=== PATIENT | female | born 1980 | race Caucasian/White ===

== ENCOUNTER 2019-03-11 11:30 | Observation (INO) ==
[~2019-03-11 11:30] MED LIST: FERRLECIT 125 MG in NS 100 ML IV ONE
[2019-03-11] MEDS ORDERED: REGLAN IV ONE (11:50)
[2019-03-11] MEDS ORDERED: REGLAN IM ONE (12:05)
[2019-03-11 12:19] LABS: OCCULT BLOOD 1 NEGATIVE (NEGATIVE)
[2019-03-11 12:32] LABS: BILIRUBIN URINE NEGATIVE (NEGATIVE); BLOOD URINE 1+ (NEGATIVE); CLARITY SL. CLOUDY (CLEAR); COLOR YELLOW; GLUCOSE URINE NEGATIVE (NEGATIVE); KETONE URINE NEGATIVE (NEGATIVE); LEUKOCYTES URINE TRACE (NEGATIVE); NITRITE URINE NEGATIVE (NEGATIVE); PROTEIN URINE TRACE mg/dL (NEGATIVE); UROBILINOGEN URINE 1 mg/dL
[2019-03-11 12:34] LABS: URINE BACTERIA 2+ /HFP; URINE CAST NONE SEEN /LPF; URINE CRYSTAL NONE SEEN /HPF; URINE EPITHELIAL CELLS >10 /HPF (<10); URINE RBC <10 /HPF (<10); URINE YEAST NONE SEEN /HPF
[2019-03-11 12:35] LABS: URINE SOURCE CLEAN CATCH
[2019-03-11 12:40] LABS: AGAP 9; BUN 15 mg/dL (8-22); CALCIUM 8.9 mg/dL (8.8-10.2); CHLORIDE 105 mmol/L (98-107); COSMO 280; CREATININE 0.5 mg/dL (0.5-0.9); ESTIMATED GFR > 60; GLUCOSE 93 mg/dL (70-104); POTASSIUM 3.9 mmol/L (3.5-5.1); SODIUM 140 mmol/L (136-145); TCO2 26 mmol/L (25-35)
[2019-03-11 12:56] LABS: BASO# 0.15 X1000 (0.0-0.2); BASO% 1.9 % (0.0-0.8); EOS# 0.36 X1000 (0.0-0.7); EOS% 4.5 % (0.0-10.0); HEMATOCRIT 27.9 % (37.0-47.0); HEMOGLOBIN 7.7 g/dL (12.0-16.0); IMM GRAN# 0.01 X1000 (0.0-0.04); IMM GRAN% 0.1 % (0.0-0.5); LYMPH# 1.49 X1000 (1.2-3.4); LYMPH% 18.8 % (20.5-51.1); MCH 17.8 PG (27-31); MCHC 27.6 g/dL (33-37); MCV 64.6 FL (81-99); MONO# 0.59 X1000 (0.11-0.59); MONO% 7.4 % (1.7-9.3); MPV 10.1 FL (7.4-10.4); NEUT# 5.34 X1000 (1.4-6.5); NEUT% 67.3 % (42.2-75.2); PLT 536 X1000 (130-400); RBC 4.32 XMIL (4.2-5.4); WBC 7.94 X1000 (4.8-10.8)
[2019-03-11] MEDS ORDERED: ZANTAC 50 MG in NS 50 ML IV SCH (13:45)
[2019-03-11] MEDS ORDERED: PEPCID IV SCH (14:00)
[2019-03-11] MEDS ORDERED: TYLENOL PO PRN (14:07)
[2019-03-11] MEDS ORDERED: ZOFRAN IV PRN (14:07)
[2019-03-11] MEDS ORDERED: SODIUM CHLORIDE 0.9% INJ SCH (14:15)
[2019-03-11] MEDS ORDERED: PROTONIX IV SCH (14:15)
[2019-03-11 14:43] LABS: IRON SATURATION 3 %; TIBC 509 ug/dL; TOTAL IRON 16 ug/dL (49-151); UNBOUND IRON 493 ug/dL (112-346)
[2019-03-11] MEDS ORDERED: ULTRAM PO PRN (16:19)
[2019-03-11] MEDS ORDERED: TYLENOL PO ONE (16:47)
[2019-03-11] MEDS ORDERED: BENADRYL PO ONE (16:47)
--- NOTE | 2019-03-11 19:03 | HISTORY AND PHYSICAL ---
CHIEF COMPLAINT: Was weakness, dizziness. HISTORY OF PRESENT ILLNESS: This is a 38-year-old female with a history of peptic ulcer disease and symptomatic anemia. I think she has ever really completely had follow-up as such, but in any case, the patient was admitted. She came in with symptomatic anemia. Hemoglobin and hematocrit was around 7 and 27, microcytic indices. Again, she was here in 2015 for an upper GI bleed. She had a large peptic ulcer and her initial H H was 4.9 and 19. She received 3 units of blood at that time and her H H improved Dr. Mclain found a large pyloric channel ulcer about 3 to 4 cm with contact oozing at the edges as well as duodenitis. At that time, she did take Goody powders and BC Powder. She says she does not currently take those. She uses Tylenol, but very sparingly. Her stool for H pylori was negative. I do not know if we did any other testing. I do not see any pathology reports. In any case, the patient is doing well. She came in. She does report constipation and that is why she does not take iron. She does also reports heavy cycles, she says every 2 weeks for about 5 days. She goes through a box and a half of tampons during that time. No melena this time. No hematochezia, no hematemesis, but she says last time she did not have gross bleeding with her ulcer. Reportedly, she has lost 50 to 60 pounds in the last year and she does this. Apparently, she does have stomach pains and hurting and have discomfort generally speaking. In any case, the patient is having some issues consistently with a GI bleed. She says since that time she has had her blood counts checked, although she does not really see a regular physician and they have been normal. She has been living in the [place] area. Her H H at this time was 7 and 27. Previously she has been around 9 and 30, MCV is low at 64, platelets up at 536,000. The patient placed in observation for symptomatic anemia. PAST MEDICAL HISTORY: Peptic ulcer disease, symptomatic anemia presumably related to iron deficiency. PAST SURGICAL HISTORY: Denies. FAMILY HISTORY: Mother had pancreatic cancer. SOCIAL HISTORY: Half a pack a day smoker. No regular alcohol use. No recreational drugs. ALLERGIES: To penicillin. MEDICATIONS: Omeprazole. REVIEW OF SYSTEMS: Again, the 50-60 pounds weight loss. She has had some dyspepsia. Otherwise negative times a 10 point review of systems. PHYSICAL EXAM: VITAL SIGNS: Blood pressure 113/48, heart rate is 61, respiratory rate 18, temperature 97.2 degrees, 100% on room air. GENERALLY: Well-developed female in no acute distress. HEAD EXAM: Was normocephalic, atraumatic. EYE EXAM: Pupils equal, round, reactive to light. Extraocular movements were intact. Her conjunctiva are pale. NECK EXAM: Supple. CARDIOVASCULAR EXAM: Regular rate and rhythm. No murmurs, gallops, or rubs. PULMONARY EXAM: Bilateral breath sounds. Clear to auscultation. GI: Was soft, nontender, nondistended. Bowel sounds are positive. NEURO EXAM: Was nonfocal. MUSCULOSKELETAL EXAM: Was 4 to 5 in all 4 extremities. SKIN: Was clean, dry, intact. Again, she had pale conjunctiva. LABORATORY DATA: Again, her hemoglobin and hematocrit was around 7 and 27. Rest of her labs were unremarkable. Iron labs which were drawn after the fact showed low iron, high TIBC, but high iron binding, iron saturation of 3%, which is extremely low. Hemoccult was negative. ASSESSMENT: This is a 38-year-old female with history of symptomatic anemia, previous history of peptic ulcer disease. 1. Symptomatic anemia. We will continue treatments. I am going to go and give her 1 unit of blood. Check her iron levels and we will see how she does. It is suspicious she has recurrent occult bleeding, but she possibly could have menorrhagia/metrorrhagia so we will get a pelvic ultrasound and follow. DISPOSITION: Pending her clinical status but anticipate discharge hopefully soon with close GI follow-up. cc: Jean Claude Alvarez MD
[2019-03-11] MEDS ORDERED: NS 500 ML ONE (19:04)
[2019-03-11] MEDS ORDERED: PRILOSEC PO SCH (21:00)
[2019-03-12] MEDS ORDERED: PRILOSEC PO SCH (07:00)
[2019-03-12 07:18] LABS: BASO# 0.15 X1000 (0.0-0.2); BASO% 1.8 % (0.0-0.8); EOS# 0.41 X1000 (0.0-0.7); EOS% 4.9 % (0.0-10.0); HEMATOCRIT 30.3 % (37.0-47.0); HEMOGLOBIN 8.6 g/dL (12.0-16.0); IMM GRAN# 0.01 X1000 (0.0-0.04); IMM GRAN% 0.1 % (0.0-0.5); LYMPH# 2.28 X1000 (1.2-3.4); LYMPH% 27.2 % (20.5-51.1); MCH 19.2 PG (27-31); MCHC 28.4 g/dL (33-37); MCV 67.8 FL (81-99); MONO# 0.78 X1000 (0.11-0.59); MONO% 9.3 % (1.7-9.3); MPV 10.3 FL (7.4-10.4); NEUT# 4.76 X1000 (1.4-6.5); NEUT% 56.7 % (42.2-75.2); PLT 411 X1000 (130-400); RBC 4.47 XMIL (4.2-5.4); RDW 21.4 % (11.5-14.5); WBC 8.39 X1000 (4.8-10.8)
[2019-03-12 07:29] VITALS: BP 112/56
[2019-03-12 07:47] LABS: AGAP 8; BUN 15 mg/dL (8-22); CALCIUM 8.4 mg/dL (8.8-10.2); CHLORIDE 107 mmol/L (98-107); COSMO 276; CREATININE 0.4 mg/dL (0.5-0.9); ESTIMATED GFR > 60; GLUCOSE 86 mg/dL (70-104); POTASSIUM 3.5 mmol/L (3.5-5.1); SODIUM 138 mmol/L (136-145); TCO2 23 mmol/L (25-35)
[2019-03-12] MEDS ORDERED: FERRLECIT 125 MG in NS 100 ML IV ONE (08:00)
[2019-03-12 09:35] LABS: EOS 4 % (1-10); LYMPHS 29 % (21-51); MONO 6 % (1-9); SEGS 61 % (42-75)
--- NOTE | 2019-03-12 10:03 | Diag Imaging Result Doc PS360 ---
US PELVIC NON-OB COMPLETE - 03/12/2019 INDICATION: menorrhagia/anemia TECHNIQUE: Transabdominal COMPARISON: None FINDINGS: There is a simple anechoic right ovarian cyst. This measures 2.8 cm. The left ovary is normal. The right ovary measures 4.2 x 4.9 x 3.5 cm. The left ovary measures 3.8 x 3.1 x 1.8 cm. No pelvic free fluid. The uterus is normal. The uterus measures 9 x 5.2 x 4.9 cm. Endometrial stripe thickness is 11 mm. The urinary bladder appears normal. IMPRESSION: Simple right ovarian cyst. Otherwise negative. Electronically signed by Dorian Arias 03/12/2019 10:00 AM
--- NOTE | 2019-03-13 07:12 | DISCHARGE SUMMARY ---
ADMISSION DATE: 03/11/2019 DISCHARGE DATE: 03/12/2019 DISCHARGE DIAGNOSES: 1. Symptomatic anemia. 2. Menorrhagia. 3. Iron deficiency anemia. 4. Peptic ulcer disease. HISTORY: Briefly, this 38-year-old female presenting with dizziness spike. She has had a history of peptic ulcer disease and anemia in the past. Last scope was in 2014. I think she has kind of been away from this area, but has moved back to this area. She came back in because she was kind of dizzy. Her family does report significant weight loss. She has not been eating very well, mostly because of dyspepsia. In any case, her hemoglobin and hematocrit was 7 and 27. She was placed in observation and given a unit of blood. Her iron studies were consistent with iron deficiency. Her ferritin is 7. Her iron sat was 3, iron total of 16. In any case, the patient was stabilized. After a unit of blood, she improved and was discharged in stable condition. I did discuss the case with Dr. Mclain. We are going to set her up for outpatient EGD. I am also going to have her follow up with Dr. De Luna for evaluation for outpatient iron infusions. We will continue to monitor. She will also need to set up with a primary care physician. DISCHARGE MEDICATIONS: 1. Icar C daily. 2. Prilosec 40 daily. DISCHARGE INSTRUCTIONS: She is to avoid NSAIDs. We will continue to monitor closely. cc: MD Sebas Leal MD Dr. Arora
== END 2019-03-12 13:30 | disposition home or self-care (01) ==
LOC: P.ED 11:30 → P.MEDSURG 11:30
PROVIDERS: ADMIT Internal Medicine
CPT/HCPCS: 36430; 76856; 80048; 81001; 81025; 82270; 82607; 82728; 82746; 83540; 83550; 84466; 85025; 86850; 86900; 86901; 86920; 87077; 87088; 87186; A9270; C9113; J2765; J2916; J7040; P9016; S0164